=== PATIENT | male | born 1960 | race Caucasian/White ===

== ENCOUNTER 2020-09-10 04:23 | Emergency (ER) | payer OTHER ==
[~2020-09-10] VITALS: Ht 180.3 cm; Wt 72.6 kg
[2020-09-10 04:35] VITALS: BP_SYST 181
[2020-09-10] MEDS: NACL 0.9% 1,000 ML IV ONE (04:58)
[2020-09-10] MEDS: ONDANSETRON HCL 4 MG/2 ML VIAL IVP ONE ×2 (04:59→07:01)
[2020-09-10] MEDS: MORPHINE 4 MG/ML INJ. SYRINGE IVP ONE (05:02)
[2020-09-10 05:09] LABS: BASOPHILS % (AUTO) 0.5 % (0.0-2.0); HEMOGLOBIN 15.8 g/dL (14.0-18.0); LYMPHOCYTES # (AUTO) 0.6 K/uL (1.0-5.5); LYMPHOCYTES % (AUTO) 12.4 % (20.5-51.5); MEAN CORPUSCULAR HEMOGLOBIN 33 pg (27-31); MEAN CORPUSCULAR HGB CONC 34 % (32-36); MEAN CORPUSCULAR VOLUME 97 fL (79.0-98.0); MONOCYTES # (AUTO) 0.3 K/uL (0.0-1.0); MONOCYTES % (AUTO) 6.9 % (1.7-9.3); NEUTROPHILS % (AUTO) 80.2 % (40.0-70.0); PLATELET COUNT (AUTO) 189 K/uL (130-430); RED BLOOD CELL COUNT(AUTO) 4.76 MIL/uL (4.2-6.2)
[2020-09-10 05:16] LABS: CALCIUM 9.2 mg/dL (8.4-11.0); CREATININE 1.09 mg/dL (0.55-1.30); POTASSIUM 3.5 mmol/L (3.5-5.1)
[2020-09-10 05:19] LABS: INR 1.1 (0.80-1.20); PROTHROMBIN TIME 10.9 SECS (9.5-12.5)
[2020-09-10 05:22] LABS: ALBUMIN 4.3 g/dL (3.4-4.8); TOTAL BILIRUBIN 0.5 mg/dL (0.0-1.0)
[2020-09-10] MEDS ORDERED: ONDA-8 TL (07:06)
[2020-09-10 07:11] VITALS: BP_SYST 167
== END 2020-09-10 07:11 | disposition home or self-care (01) ==
LOC: SED 04:23
DX: R11.2 Nausea with vomiting, unspecified (principal); I10 Essential (primary) hypertension; E07.9 Disorder of thyroid, unspecified
CPT/HCPCS: 36415; 74176; 76376; 80053; 82150; 83690; 85025; 85610; 96361; 96374; 96375; 96376; 99284; J2270; J2405; J7030